=== PATIENT | female | born 1985 | race Caucasian/White ===

== ENCOUNTER 2024-11-13 18:29 | Emergency (ER) | payer MEDICAID, OTHER ==
[~2024-11-13] VITALS: Ht 165.1 cm; Wt 75.0 kg
[2024-11-13 18:35] VITALS: TEMP 98.1; O2SAT 100
[2024-11-13] MEDS: DEXAMETHASONE 4MG/ML 1ML VIAL PO ONE (20:43)
[2024-11-13] MEDS: ACETAMINOPHEN 325MG TABLET PO ONE (20:43)
[2024-11-13 20:45] VITALS: O2SAT 100
[2024-11-13 20:48] VITALS: BP 149/74; PULSE 99; RESP 20
[2024-11-13] MEDS: LIDOCAINE 5% PATCH TOP SCH (20:48)
[2024-11-13] MEDS: KETOROLAC 15MG/ML VIAL IM ONE (20:48)
[2024-11-13] MEDS ORDERED: LIDO1ADH71 TOP (20:50)
[2024-11-13] MEDS ORDERED: CYCL7.5T25 MT (20:50)
== END 2024-11-13 21:04 | disposition home or self-care (01) ==
LOC: ER 18:29
DX: M54.50 Low back pain, unspecified (principal)
CPT/HCPCS: 81025; 72131; 96372; 99285; J1100; J1885; Z7610